=== PATIENT | female | born 1965 | race Caucasian/White ===

== ENCOUNTER 2017-12-10 21:54 | Inpatient (IN) | payer MEDICAID ==
[2017-12-10] MEDS ORDERED: SODIUM CHLORIDE 0.9% 1L BAG IV* (21:56)
[2017-12-10 22:28] LABS: ADD MAN DIFF? NO
[2017-12-10 22:29] LABS: BASOPHILS % 0.2 % (0.0-2.0); EOSINOPHILS # 0.2 10^3/ul (0.0-0.5); HEMATOCRIT 38.6 % (37.0-47.0); HEMOGLOBIN 11.7 g/dl (12.0-16.0); LYMPHOCYTES % 43.1 % (15.0-51.0); MEAN CORPUSCULAR HEMOGLOBIN 30.7 pg (29.0-33.0); MEAN CORPUSCULAR HGB CONC 30.3 g/dl (32.0-37.0); MEAN CORPUSCULAR VOLUME 101.3 fl (82.0-101.0); MEAN PLATELET VOLUME 10.6 fl (7.4-10.4); MONOCYTE # 0.4 10^3/ul (0.3-0.9); MONOCYTES % 4.1 % (0.0-11.0); NEUTROPHIL # 4.4 10^3/ul (1.6-7.5); NEUTROPHILS % 46.6 % (39.0-77.0); PLATELET COUNT 222 10^3/UL (140-415); RED BLOOD COUNT 3.81 10^6/ul (4.20-5.40)
[2017-12-10 22:29] LABS: WHITE BLOOD COUNT 9.4 10^3/ul (4.8-10.8)
[2017-12-10 22:45] LABS: ALANINE AMINOTRANSFERASE 227 IU/L (13-69); ALBUMIN 3.1 g/dl (3.3-4.9); ALKALINE PHOSPHATASE 97 IU/L (42-121); ANION GAP 29 (8-16); ASPARTATE AMINO TRANSFERASE 214 IU/L (15-46); BILIRUBIN,INDIRECT 0.2 mg/dl (0-1.1); BILIRUBIN,TOTAL 0.2 mg/dl (0.2-1.3); BLOOD UREA NITROGEN 13 mg/dl (7-20); CALCIUM 9.2 mg/dl (8.4-10.2); CARBON DIOXIDE 16 mmol/L (21-31); CHLORIDE 100 mmol/L (97-110); CREATININE 0.75 mg/dl (0.44-1.00); GLUCOSE 288 mg/dl (70-220); POTASSIUM 4.1 mmol/L (3.5-5.1); SODIUM 141 mmol/L (135-144); TOTAL PROTEIN 6.5 g/dl (6.1-8.1)
[2017-12-10 22:46] LABS: ALBUMIN/GLOBULIN RATIO 0.91
[2017-12-10] MEDS: SOD CHLORIDE 0.9% 1,690 ML IV (22:51)
[2017-12-10 22:54] LABS: INR 1.09; PROTIME 14.3 Sec (11.9-14.9); PT RATIO 1.1
[2017-12-10 22:55] LABS: PARTIAL THROMBOPLASTIN TIME 35.6 Sec (25.0-35.0)
[2017-12-10 22:57] LABS: TROPONIN-I < 0.012 ng/ml (0.000-0.120)
[2017-12-10] MEDS: CEFEPIME 2GM/50 ML (PMX) 50 ML IVPB (22:59)
[2017-12-10] MEDS: VANCOMYCIN 1 GM (PMX) 250 ML IVPB (22:59)
[2017-12-10 23:05] LABS: LACTIC ACID 15.3 mmol/L (0.5-2.0)
[2017-12-10 23:58] LABS: ADD UMIC YES; UR ASCORBIC ACID 40 mg/dL (NEGATIVE); UR BACTERIA FEW /HPF (NONE SEEN); UR BILIRUBIN (Dip) NEGATIVE (NEGATIVE); UR BLOOD (Dip) NEGATIVE (NEGATIVE); UR BUDDING YEAST FEW /HPF (NONE SEEN); UR CLARITY CLOUDY (CLEAR); UR COLOR AMBER (YELLOW); UR GLUCOSE (Dip) 2+ mg/dL (NEGATIVE); UR KETONES (Dip) NEGATIVE (NEGATIVE); UR LEUKOCYTE ESTERASE (Dip) NEGATIVE Leu/ul (NEGATIVE); UR MUCUS FEW /HPF (NONE SEEN); UR NITRITE (Dip) NEGATIVE (NEGATIVE); UR RBC 14 /HPF (0-5); UR SPECIFIC GRAVITY (Dip) 1.015 (1.003-1.030); UR SQUAMOUS EPITHELIAL CELL FEW /HPF (FEW); UR TOTAL PROTEIN (Dip) 3+ mg/dl (NEGATIVE); UR UROBILINOGEN (Dip) NEGATIVE (NEGATIVE); UR WBC 38 /HPF (0-5)
[2017-12-11 00:19] LABS: LACTIC ACID 6.8 mmol/L (0.5-2.0)
[2017-12-11 00:27] LABS: AADO2 Arterial 43.1 mmHg (7.0-24.0); Allen Test ACCEPTAB; Arterial Base Excess -6.3 mmol/L (-3.0-3); Arterial Blood Gas Oxygen Sat 99.7 mmHG (95.0-98.0); Arterial COHb 0.3 % (0.0-3.0); Arterial Fraction of Oxyhgb 99.1 % (93.0-99.0); Arterial HCO3 17.3 mmol/L (22.0-26.0); Arterial MetHb 0.3 % (0.0-1.5); Arterial pCO2 29.5 mmhg (35-45); MODE VENT - AC; Site Right Radial
[2017-12-11] MEDS ORDERED: IPRATROPIUM (NEB) 0.5 MG/2.5 ML AMP NEB (01:00)
[2017-12-11] MEDS ORDERED: ALBUTEROL 0.083% (NEB) 2.5 MG/3 ML AMP NEB (01:00)
[2017-12-11] MEDS ORDERED: VANCOMYCIN IV PER PHARMACY XX (01:30)
[2017-12-11 02:17] LABS: CREATINE KINASE 282 IU/L (23-200)
[2017-12-11 02:25] LABS: LACTIC ACID 4.7 mmol/L (0.5-2.0)
[2017-12-11 02:31] LABS: CK INDEX 5.2
[2017-12-11 02:44] LABS: TROPONIN-I 0.994 ng/ml (0.000-0.120)
[2017-12-11 02:47] LABS: MAGNESIUM 2.6 mg/dl (1.7-2.5)
[2017-12-11] MEDS: LORAZEPAM 2 MG INJ IV (02:56)
[2017-12-11] MEDS: hydrALAzine 20 MG INJ IV (03:06)
[2017-12-11] MEDS: SOD CHLORIDE 0.9% 100 ML (03:27)
[2017-12-11] MEDS: IOHEXOL 300MG/ML 150 ML BTL (03:27)
[2017-12-11] MEDS: SOD CHLORIDE 0.9% 1,000 ML IV ×5 (03:58→20:15)
[2017-12-11 05:06] LABS: ADD MAN DIFF? NO
[2017-12-11 05:26] LABS: AADO2 Arterial 43.1 mmHg (7.0-24.0); Allen Test ACCEPTAB; Arterial Base Excess -6.3 mmol/L (-3.0-3); Arterial Blood Gas Oxygen Sat 99.7 mmHG (95.0-98.0); Arterial COHb 0.3 % (0.0-3.0); Arterial Fraction of Oxyhgb 99.1 % (93.0-99.0); Arterial HCO3 17.3 mmol/L (22.0-26.0); Arterial MetHb 0.3 % (0.0-1.5); Arterial pCO2 29.5 mmhg (35-45); MODE VENT - AC; Site Right Radial
[2017-12-11 05:35] LABS: ALANINE AMINOTRANSFERASE 399 IU/L (13-69); ALBUMIN 3.8 g/dl (3.3-4.9); ALKALINE PHOSPHATASE 139 IU/L (42-121); ANION GAP 22 (8-16); ASPARTATE AMINO TRANSFERASE 310 IU/L (15-46); BILIRUBIN,INDIRECT 0.4 mg/dl (0-1.1); BILIRUBIN,TOTAL 0.4 mg/dl (0.2-1.3); BLOOD UREA NITROGEN 21 mg/dl (7-20); CALCIUM 9.4 mg/dl (8.4-10.2); CARBON DIOXIDE 18 mmol/L (21-31); CHLORIDE 107 mmol/L (97-110); CREATININE 0.57 mg/dl (0.44-1.00); GLUCOSE 197 mg/dl (70-220); SODIUM 144 mmol/L (135-144)
[2017-12-11] MEDS: PIPER-TAZO 3.375 GM IV (PMX) 100 ML IVPB ×3 (05:36→18:28)
[2017-12-11] MEDS: PANTOPRAZOLE 40 MG INJ IV (05:36)
[2017-12-11 05:49] LABS: AADO2 Arterial 56.3 mmHg (7.0-24.0); Allen Test ACCEPTAB; Arterial Base Excess -6.3 mmol/L (-3.0-3); Arterial Blood Gas Oxygen Sat 99.2 mmHG (95.0-98.0); Arterial COHb 0.1 % (0.0-3.0); Arterial Fraction of Oxyhgb 98.7 % (93.0-99.0); Arterial HCO3 14.2 mmol/L (22.0-26.0); Arterial MetHb 0.4 % (0.0-1.5); Arterial Total Hemglobin 16.6 g/dl (12.0-18.0); Arterial pCO2 19.7 mmhg (35-45); Blood Gas PS 12; MODE VENT - SIMV; Site Right Radial
[2017-12-11 06:35] LABS: BASOPHIL # 0.1 10^3/ul (0.0-0.1); BASOPHILS % 0.2 % (0.0-2.0); HEMATOCRIT 47.4 % (37.0-47.0); HEMOGLOBIN 15.8 g/dl (12.0-16.0); LYMPHOCYTES % 4.8 % (15.0-51.0); MEAN CORPUSCULAR HEMOGLOBIN 30.3 pg (29.0-33.0); MEAN CORPUSCULAR HGB CONC 33.3 g/dl (32.0-37.0); MEAN PLATELET VOLUME 10.5 fl (7.4-10.4); MONOCYTE # 1.2 10^3/ul (0.3-0.9); MONOCYTES % 5.5 % (0.0-11.0); NEUTROPHIL # 18.5 10^3/ul (1.6-7.5); NEUTROPHILS % 88.9 % (39.0-77.0); PLATELET COUNT 293 10^3/UL (140-415); RED BLOOD COUNT 5.21 10^6/ul (4.20-5.40); RED CELL DISTRIBUTION WIDTH 12.5 % (11.5-14.5)
[2017-12-11 06:35] LABS: WHITE BLOOD COUNT 20.9 10^3/ul (4.8-10.8)
[2017-12-11 06:57] LABS: CREATINE KINASE 366 IU/L (23-200)
[2017-12-11] MEDS: NA BICARBONATE 8.4% 50 ML SYG IV (06:58)
[2017-12-11 07:10] LABS: CK INDEX 4.5
[2017-12-11] MEDS: METOPROLOL 25 MG TAB NGT ×2 (10:00→20:15)
[2017-12-11] MEDS ORDERED: VANCOMYCIN 750 MG in SOD CHLORIDE 0.9% 150 ML IVPB (11:00)
[2017-12-11] MEDS: ASPIRIN 81 MG TAB GTB (11:04)
[2017-12-11] MEDS: VANCOMYCIN 1 GM 250 ML IVPB ×2 (11:18→23:36)
[2017-12-11] MEDS ORDERED: NORepinephrine 8MG/250 ML (PMX 250 ML (12:23)
[2017-12-11] MEDS: NORepinephrine 8MG/250 ML (PMX 250 ML IV (12:32)
[2017-12-11] MEDS: LIDOCAINE 1% (MPF) 5 ML VIAL SC (13:30)
[2017-12-11] MEDS: FLUCONAZOLE 200 MG (PMX) 100 ML IVPB (15:37)
[2017-12-11] MEDS: POTASSIUM CHLORIDE 50 ML IVPB ×3 (15:37→18:28)
[2017-12-11 16:03] LABS: AMMONIA < 9 umol/l (9-30)
[2017-12-11] MEDS: PHENYLephrine 40 MG in DEXTROSE 5% 496 ML IV ×2 (18:51→20:47)
[2017-12-11] MEDS: ALBUMIN HUMAN 25% 100 ML IV (19:43)
[2017-12-11] MEDS ORDERED: DOPamine 1,600 MG in DEXTROSE 5% 210 ML IV (21:00)
[2017-12-11] MEDS: VASOPRESSIN 60 UNIT in DEXTROSE 5% 57 ML IV (21:37)
[2017-12-11] MEDS: ACETAMINOPHEN 650MG/20.3ML CUP NGT (21:40)
[2017-12-11] MEDS: NORepinephrine 32 MG in DEXTROSE 5% 218 ML IV (22:07)
[2017-12-11] MEDS: DOPamine 800 MG in DEXTROSE 5% 230 ML IV (22:40)
[2017-12-11] MEDS: PHENYLephrine 160 MG in DEXTROSE 5% 484 ML IV (23:04)
[2017-12-12] MEDS: PIPER-TAZO 3.375 GM IV (PMX) 100 ML IVPB (00:19)
== END 2017-12-12 04:35 | disposition expired | DRG 871 ==
LOC: ICU 12-11 01:02 → E/R 21:54
PROC: 5A1945Z Respiratory Ventilation, 24-96 Consecutive Hours (ICD-10-PCS; principal; 2017-12-10)
PROC: 05H533Z Insertion of Infusion Device into Right Subclavian Vein, Percutaneous Approach (ICD-10-PCS; 2017-12-10)
PROC: 4A133R1 Monitoring of Arterial Saturation, Peripheral, Percutaneous Approach (ICD-10-PCS; 2017-12-11)
DX: A41.9 Sepsis, unspecified organism (principal); I21.4 Non-ST elevation (NSTEMI) myocardial infarction; R65.21 Severe sepsis with septic shock; G93.49 Other encephalopathy; J96.20 Acute and chronic respiratory failure, unspecified whether with hypoxia or hypercapnia; J18.9 Pneumonia, unspecified organism; Z99.11 Dependence on respirator [ventilator] status; E87.2 Acidosis; I46.9 Cardiac arrest, cause unspecified; R74.0 Nonspecific elevation of levels of transaminase and lactic acid dehydrogenase [LDH]; E87.6 Hypokalemia; G40.909 Epilepsy, unspecified, not intractable, without status epilepticus; D50.9 Iron deficiency anemia, unspecified; R13.10 Dysphagia, unspecified; Z93.1 Gastrostomy status; Z87.820 Personal history of traumatic brain injury; Z93.0 Tracheostomy status; Z89.611 Acquired absence of right leg above knee
CPT/HCPCS: 36415; 36569; 36600; 70450; 71045; 71250; 71275; 76937; 80053; 81001; 82140; 82550; 82553; 82803; 82962; 83605; 83735; 84484; 85025; 85610; 85730; 87040; 87045; 87075; 87081; 87086; 87177; 87205; 93005; 93306; 94002; 94003; 96374; 96375; 99291-25